=== PATIENT | female | born 2000 | race Hispanic/Latino ===

== ENCOUNTER 2024-09-02 16:16 | Emergency (ER) | payer MEDICAID, SELFPAY ==
[2024-09-02] MEDS ORDERED: Metoclopramide HCl 10 MG (2 mL) VIAL ONE (17:04)
[2024-09-02] MEDS ORDERED: diphenhydrAMINE 50 MG/ML VIAL ONE (17:04)
[2024-09-02 17:12] LABS: Bilirubin Neg (Negative); Blood, Urine 10 (Negative); Clarity Slightly Cloudy (Clear); Glucose, Urine (Dipstick) Normal (Negative); Ketone, Urine 150 mg/dL (Negative); Leukocyte 25 (Negative); Nitrite Negative (Negative); Protein, Urine (Dipstick) 15 mg/dl (Neg-Trace); Specific Gravity, Urine 1.025 (1.005-1.030); Urobilinogen Normal mg/dL (Less than 2)
[2024-09-02 17:16] LABS: #Basophils 0.03 10x3/uL (0.0-0.2); #Eosinophils 0.07 10x3/uL (0.0-0.5); #Neutrophils 3.99 10x3/uL (1.5-8.4); %Basophils 0.5 % (0.0-2.0); %Eosinophils 1.1 % (0.0-6.0); %Monocytes 7.8 % (0.0-10.0); %Neutrophils 62.3 % (40.0-75.0); Hematocrit 35.8 % (34.9-44.5); Hemoglobin 12.6 g/dL (12.0-15.5); Mean Corpuscular HGB CONC 35.2 g/dL (32.0-36.0); Mean Corpuscular Hemoglobin 29.4 pg (27.0-33.0); Mean Corpuscular Volume 83.6 fL (81.6-98.3); Mean Platelet Volume 10.3 fL (7.4-10.4); Platelet Count 244 10x3/uL (150-450); RBC Distribution Width 12.1 % (11.5-14.5); Red Blood Cell (RBC) Count 4.28 10x6/uL (3.90-5.03); White Blood Cell (WBC) Count 6.4 10x3/uL (3.5-10.5)
[2024-09-02 17:23] LABS: CAUTI Indications for Culture Pregnancy; RBC/HPF 0-3 HPF (0-3); WBC/HPF 0-3 HPF (0-3)
[2024-09-02 17:24] LABS: Bacteria/HPF 1+ HPF (None Seen); Mucous/LPF 3+ LPF (<2+)
[2024-09-02 17:25] LABS: Urine Culture Reflex No No; Urine Culture Reflex Yes Yes
[2024-09-02 17:32] LABS: ALT (SGPT) 15 U/L (8-55); AST (SGOT) 13 U/L (5-34); Albumin 3.7 g/dL (3.5-5.0); Alkaline Phosphatase 29 U/L (40-110); Anion Gap 13 mmol/L (10-20); BUN (Urea Nitrogen) 6 mg/dL (7.0-18.7); Bilirubin, Total 0.6 mg/dL (0.2-1.2); Calc. Creatinine Clearance 0 mL/min (70-130); Calcium 9.3 mg/dL (7.8-10.44); Carbon Dioxide 20 mmol/L (22-29); Chloride 107 mmol/L (98-107); Estimated GFR 129; Globulin 3.2 g/dL (2.4-3.5); Glucose 82 mg/dL (70-105); Lipase 21 U/L (8-78); Potassium 3.7 mmol/L (3.5-5.1); Protein, Total 6.9 g/dL (6.0-8.3); Sodium 136 mmol/L (136-145)
== END 2024-09-02 19:52 | disposition home or self-care (01) ==
LOC: CSHERS 16:16
DX: O23.41 Unspecified infection of urinary tract in pregnancy, first trimester (principal); N39.0 Urinary tract infection, site not specified; Z3A.09 9 weeks gestation of pregnancy
CPT/HCPCS: 36415; 76856; 80053; 81001; 83690; 84702; 85025; 86900; 86901; 87086; 96374; 96375; J1200; J2765

== ENCOUNTER 2024-10-04 11:40 | Emergency (ER) | payer MEDICAID, SELFPAY ==
[2024-10-04 12:37] LABS: Bilirubin Neg (Negative); Blood, Urine Negative (Negative); Clarity Clear (Clear); Glucose, Urine (Dipstick) Normal (Negative); Ketone, Urine 15 mg/dL (Negative); Leukocyte 100 (Negative); Nitrite Negative (Negative); Protein, Urine (Dipstick) 15 mg/dl (Neg-Trace); Urobilinogen Normal mg/dL (Less than 2)
[2024-10-04] MEDS ORDERED: Acetaminophen 500 MG TAB ONE (12:56)
[2024-10-04 12:57] LABS: Bacteria/HPF 3+ HPF (None Seen); CAUTI Indications for Culture Pelvic or flank pain; RBC/HPF 0-3 HPF (0-3)
[2024-10-04 12:58] LABS: Urine Culture Reflex No No
[2024-10-04 13:29] LABS: #Basophils 0.02 10x3/uL (0.0-0.2); #Eosinophils 0.08 10x3/uL (0.0-0.5); #Monocytes 0.44 10x3/uL (0.0-1.1); %Basophils 0.3 % (0.0-2.0); %Eosinophils 1.1 % (0.0-6.0); %Lymphocytes 23.9 % (18.0-47.0); %Neutrophils 68.3 % (40.0-75.0); Hematocrit 35.7 % (34.9-44.5); Hemoglobin 12.2 g/dL (12.0-15.5); Mean Corpuscular HGB CONC 34.2 g/dL (32.0-36.0); Mean Corpuscular Hemoglobin 28.7 pg (27.0-33.0); Mean Platelet Volume 10.2 fL (7.4-10.4); Platelet Count 269 10x3/uL (150-450); RBC Distribution Width 13.1 % (11.5-14.5); Red Blood Cell (RBC) Count 4.25 10x6/uL (3.90-5.03); White Blood Cell (WBC) Count 7.3 10x3/uL (3.5-10.5)
[2024-10-04 13:46] LABS: ALT (SGPT) 8 U/L (8-55); AST (SGOT) 13 U/L (5-34); Albumin 3.4 g/dL (3.5-5.0); Alkaline Phosphatase 38 U/L (40-110); Anion Gap 10 mmol/L (10-20); BUN (Urea Nitrogen) 5 mg/dL (7.0-18.7); Bilirubin, Total 0.3 mg/dL (0.2-1.2); Calc. Creatinine Clearance 0 mL/min (70-130); Calcium 9.1 mg/dL (7.8-10.44); Carbon Dioxide 23 mmol/L (22-29); Chloride 106 mmol/L (98-107); Estimated GFR 131; Globulin 3.5 g/dL (2.4-3.5); Glucose 85 mg/dL (70-105); Protein, Total 6.9 g/dL (6.0-8.3); Sodium 135 mmol/L (136-145)
== END 2024-10-04 17:25 | disposition home or self-care (01) ==
LOC: CSHERS 11:40
DX: O46.91 Antepartum hemorrhage, unspecified, first trimester (principal); K59.00 Constipation, unspecified; N39.0 Urinary tract infection, site not specified; Z3A.13 13 weeks gestation of pregnancy
CPT/HCPCS: 36415; 76815; 80053; 81001; 84702; 85025; 86900; 86901; 87086; 87480; 87510; 87660

== ENCOUNTER 2025-07-30 02:55 | Emergency (ER) | payer MEDICAID, OTHER | END 2025-07-30 03:30 | disposition home or self-care (01) | LOC: CSHERS 02:55 | DX: R05.9 Cough, unspecified (principal) | CPT/HCPCS: 99283 ==

== ENCOUNTER 2025-08-30 15:43 | Emergency (ER) | payer MEDICAID ==
[2025-08-30] MEDS ORDERED: Ibuprofen 200 MG TAB ONE (17:23)
== END 2025-08-30 18:22 | disposition home or self-care (01) ==
LOC: CSHERS 15:43
DX: J11.1 Influenza due to unidentified influenza virus with other respiratory manifestations (principal); N64.4 Mastodynia
CPT/HCPCS: 87428; 99283; Q0162